=== PATIENT | female | born 1985 | race Two or more races ===

== ENCOUNTER 2020-07-25 04:02 | Day surgery (SDC) | payer BC ==
[2020-07-22 10:40] VITALS: BMI 26.6
[2020-07-25] MEDS ORDERED: MIDAZOLAM HCL 2 MG/2 ML SINGLE DOSE VIAL ONE ×3 (07:15→07:22)
[2020-07-25] MEDS ORDERED: BUPIVACAINE HCL 100 ML ONE ×2 (07:16→09:16)
[2020-07-25] MEDS ORDERED: BUPIVACAINE LIPOSOME/PF (EXPAREL) 266 MG/20 ML VIAL ONE (07:16)
[2020-07-25] MEDS ORDERED: VASOPRESSIN 20 UNITS/ML VIAL IV ONE (07:17)
[2020-07-25] MEDS ORDERED: PROPOFOL 20 ML ONE ×2 (07:22)
[2020-07-25] MEDS ORDERED: fentaNYL CITRATE 250 MCG/5 ML VIAL ONE (07:22)
[2020-07-25] MEDS ORDERED: CEFAZOLIN 2 GM/D5W 2 GM/50 ML ML IVPB ONE (07:25)
[2020-07-25] MEDS ORDERED: ceFAZolin SODIUM 1 GM VIAL IVPB ONE (07:45)
[2020-07-25] MEDS ORDERED: ceFAZolin SODIUM 1 GM VIAL ONE (07:55)
[2020-07-25] MEDS ORDERED: TRANEXAMIC ACID 1000 MG/10 ML VIAL ONE (07:55)
[2020-07-25] MEDS ORDERED: DEXAMETHASONE SOD PHOSPHATE 4 MG/1 ML VIAL ONE (07:55)
[2020-07-25] MEDS ORDERED: ONDANSETRON 4 MG/2 ML VIAL IVPUSH PRN (09:16)
[2020-07-25] MEDS ORDERED: SIMETHICONE 80 MG TAB.CHEW (FP) PO PRN (09:16)
[2020-07-25] MEDS ORDERED: ACETAMINOPHEN 325 MG TABLET (FP) PO PRN (09:16)
[2020-07-25] MEDS ORDERED: DOCUSATE SODIUM 100 MG CAPSULE (FP) PO PRN (09:16)
[2020-07-25] MEDS ORDERED: BISACODYL 5 MG TABLET.DR (FP) PO PRN (09:16)
[2020-07-25] MEDS ORDERED: oxyCODONE HCL 5 MG TABLET PO PRN ×2 (09:16)
[2020-07-25] MEDS ORDERED: BUPIVACAINE HCL/PF 0.5% (5 MG/ML) 30 ML VIAL IJ ONE (09:18)
[2020-07-25] MEDS ORDERED: NEOSTIGMINE METHYLSULFATE 0.5 MG/ML - 10 ML MDV ONE (09:20)
[2020-07-25] MEDS ORDERED: SODIUM CHLORIDE 1,000 ML IV SCH (09:30)
[2020-07-25] MEDS ORDERED: ACETAMINOPHEN INJECTION 100 ML IVPB ONE (10:50)
[2020-07-25] MEDS ORDERED: ACETAMINOPHEN 1000 MG/100 ML VIAL (NON FORMULARY) IVPB ONE (11:00)
[2020-07-25] MEDS ORDERED: LACTATED RINGERS SOLUTION 1,000 ML IV SCH (11:45)
[2020-07-25] MEDS: IBUPROFEN 800 MG/8 ML IJ IVPB PRN (12:44)
[2020-07-25] MEDS: CEFAZOLIN 1 GM/D5W 1 GM/50 ML BAG IVPB SCH (16:13)
[2020-07-25] MEDS ORDERED: ZOLPIDEM TARTRATE 5 MG TABLET PO ONE (20:00)
[2020-07-25 20:19] LABS: HEMATOCRIT 31.7 % (32.4-45.2); HEMOGLOBIN 10.6 GM/dL (10.7-15.3); MCHC 33.5 g/dl (32.0-36.0); MEAN CELL VOLUME 92.5 fl (80-96); MEAN PLT VOLUME 7.9 fl (7.5-11.1); PLATELET COUNT 313 K/MM3 (134-434); RBC 3.43 M/mm3 (3.60-5.2)
[2020-07-25 20:41] LABS: BLOOD UREA NITROGEN 7.5 mg/dL (7-18); CALCIUM 8.9 mg/dL (8.5-10.1)
[2020-07-26] MEDS: CEFAZOLIN 1 GM/D5W 1 GM/50 ML BAG IVPB SCH ×2 (00:52→07:48)
[2020-07-26] MEDS: IBUPROFEN 800 MG/8 ML IJ IVPB PRN (05:20)
[2020-07-26 08:51] LABS: HEMATOCRIT 29.9 % (32.4-45.2); HEMOGLOBIN 10.1 GM/dL (10.7-15.3); MCHC 33.7 g/dl (32.0-36.0); MEAN PLT VOLUME 8.4 fl (7.5-11.1); PLATELET COUNT 285 K/MM3 (134-434); RBC 3.24 M/mm3 (3.60-5.2); RDW 14.1 % (11.6-15.6)
[2020-07-26] MEDS ORDERED: traMADol HCL 50 MG TABLET PO PRN (08:56)
[2020-07-26 09:16] LABS: BLOOD UREA NITROGEN 7.2 mg/dL (7-18); CALCIUM 8.2 mg/dL (8.5-10.1)
[2020-07-26 09:19] LABS: CREATININE 0.8 mg/dL (0.55-1.3)
[2020-07-26] MEDS ORDERED: ENOXAPARIN NA (PORCINE) 40 MG/0.4 ML DISP.SYRIN SQ SCH (10:00)
[2020-07-26] MEDS: ACETAMINOPHEN 500 MG TABLET (FP) PO SCH ×2 (10:03→14:28)
[2020-07-26 10:13] VITALS: BP 107/55; PULSE 76; TEMP 97.3
== END 2020-07-26 17:40 | disposition home or self-care (01) ==
LOC: JASUSAT 04:02 → UNDOADMIN 09:16 → J2C 09:16 → EDSTATUS 10:00 → J3W 12:26 → J2C 12:26 → J3W 12:26 → UNDODISIN 07-26 17:40 → JASUSAT 07-26 17:40
PROVIDERS: ATTEND Obstetrics & Gynecology
PROC: 0UB94ZZ Excision of Uterus, Percutaneous Endoscopic Approach (ICD-10-PCS; principal; 2020-07-25 07:30)
DX: D25.1 Intramural leiomyoma of uterus (principal); D25.0 Submucous leiomyoma of uterus; N94.6 Dysmenorrhea, unspecified
CPT/HCPCS: 36415; 80048; 81025; 85027; 86850; 86900; 86901; 88305-TC; 94010; 94760; J0131